=== PATIENT | male | born 1960 | race American Indian/Alaskan Native ===

== ENCOUNTER 2016-11-01 01:39 | Emergency (ER) | payer MEDICARE ==
--- NOTE | 2016-11-01 02:17 | Emergency Department Report ---
HPI - General Chief Complaint: Cardiac Arrest/CPR Time Seen by Provider: 11/01/16 02:12 - HPI HPI: pt is brought to ED after being down, pulseless for 30 minutes, ACLS in progress , paramedics had started and secured an airway, FsBS was within normal limits. Patient lives in a [facility], apparent full code patient with multiple comorbidities. Upon arrival to ED patient's pupils were fixed and dilated, no gag reflex, blood to lips, cold to touch, no signs of life. ED Review of Systems ROS: Stated complaint: CARDIAC ARREST Other details as noted in HPI Comment: Unobtainable due to pts medical conditions Physical Exam - Physical Exam Physical Exam: Gen aCLS in progress Head atraumatic normocephalic, cyanosis lips, face Eyes fixed and dilated Chest no cardiac activity lungs bagged ventilation Abdomen soft distended Back no point tenderness paravertebral tenderness Neuro no signs of life ED Course - Reevaluation(s) Reevaluation #1: 11/01/16 02:17 Patient regained pulse briefly after 15 minutes of ACLS, epi drip ordered, attempt to place a right subclavian central line unsuccessful. After 1 minute patient loss pulse again, due too long period of pulseless time, no cardiac activity, pupils fixed and dilated, cyanosis, upper body, patient pronounced . Critical care attestation.: If time is entered above; I have spent that time in minutes in the direct care of this critically ill patient, excluding procedure time. ED Disposition Clinical Impression: Cardiac arrest Disposition: DC-20 Is pt being admited?: No Does the pt Need Aspirin: No Condition: Stable Referrals: DICK KELLEY MD [Primary Care Provider] - 3-5 Days
[2016-11-01] MEDS ORDERED: ADRENALIN 8 MG in NACL 0.9% 250ML 242 ML IV ONE (03:00)
[2016-11-01] MEDS ORDERED: ADRENALIN ONE (10:30)
[2016-11-01] MEDS ORDERED: CALCIUM CHLORIDE IV ONE (10:30)
[2016-11-01] MEDS ORDERED: SODIUM BICARBONATE IV ONE (10:30)
[2016-11-01] MEDS ORDERED: ATROPINE 0.1% (CARDIAC) ONE (10:30)
== END 2016-11-01 05:17 ==
LOC: ED 01:39
DX: I46.9 Cardiac arrest, cause unspecified (principal)
CPT/HCPCS: 99285; J0171; J0461; J7050